=== PATIENT | male | born 1950 | race Caucasian/White ===

== ENCOUNTER 2017-01-18 06:37 | Day surgery (SDC) | payer OTHER ==
[~2017-01-18] VITALS: Ht 188 cm; Wt 92.5 kg
[~2017-01-18 06:37] MED LIST: ASPIRIN LOW DOS81 M1 PO; FISH OIL PO; MULTI VIT PO; SIMVASTATIN40 MG PO; URINOZINC PO
[2017-01-18 09:26] VITALS: BP 119/72
== END 2017-01-18 09:45 | disposition home or self-care (01) | DRG 951 ==
LOC: ENDO 06:37
PROVIDERS: ATTEND Internal Medicine Gastroenterology
PROC: 0DBP8ZX Excision of Rectum, Via Natural or Artificial Opening Endoscopic, Diagnostic (ICD-10-PCS; principal; 2017-01-18)
DX: Z12.11 Encounter for screening for malignant neoplasm of colon (principal); D12.8 Benign neoplasm of rectum; E78.00 Pure hypercholesterolemia, unspecified; K64.4 Residual hemorrhoidal skin tags; K57.30 Diverticulosis of large intestine without perforation or abscess without bleeding; I86.8 Varicose veins of other specified sites; K64.8 Other hemorrhoids; Z86.010 Personal history of colon polyps